=== PATIENT | male | born 1990 | race Caucasian/White ===

== ENCOUNTER 2018-02-01 12:54 | Inpatient (IN) | payer OTHER ==
[2018-02-01 14:55] VITALS: BMI 20.9
--- NOTE | 2018-02-01 15:29 | HP ---
CIWA Score - CIWA Score Nausea/Vomitin Muscle Tremors: 3 Anxiety: 3 Agitation: 2 Paroxysmal Sweats: 2 Orientation: 0-Oriented Tacttile Disturbances: 0-None Auditory Disturbances: 0-None Visual Disturbances: 0-None Headache: 0-None Present CIWA-Ar Total Score: 12 Admission ROS S - [facility] Chief Complaint: " I was sent here by drug court, My life is getting out of control for the past month, I started using, I want to get clean and get back to my program" Allergies/Adverse Reactions: Allergies Allergy/AdvReac Type Severity Reaction Status Date / Time No Known Allergies Allergy Verified 02/01/18 16:36 History of Present Illness: 27 yo male with hx of alcohol, xanax, IV heroin dependence. Reports is linked to [facility] out patient program for buprenorphine maintenance therapy. Reports has been on buprenorphine for a year and for the past month has relapsed to using xanax, and heroin, reports buprenorphine script a week ago and needs to schedule follow up visit, he last took the buprinorphine 8mg this past 01/29/18 and has one more dose left. Denies hx of seizures, reports hx of blackouts and OD. Denies suicidal / homicidal ideation. PMHX: chrons disease , depression and anxiety. Last detox 1.5 years in [facility]. Longest period f sobriety 2 years. Others' Prescriptions Patient Name: Dariusz Robledo Date: 1990 Address: [address] [place] [address] Sex: Male Rx Written Rx Dispensed Drug Quantity Days Supply Prescriber Name 12/23/2017 12/24/2017 dextroamp-amphetamin 10 mg tab 56 28 Tia hill DO 12/23/2017 12/24/2017 buprenorphine 8 mg tablet sl 56 28 Tia hill DO 11/24/2017 11/26/2017 buprenorphine 8 mg tablet sl 56 28 DamonTia hill DO 11/24/2017 11/26/2017 dextroamp-amphetamin 10 mg tab 56 28 HeTia hill DO 10/28/2017 10/31/2017 buprenorphine 8 mg tablet sl 56 28 Tia Bridges DO 10/28/2017 10/31/2017 dextroamp-amphetamin 10 mg tab 56 28 Heemstra, Tia L DO 09/30/2017 10/07/2017 dextroamp-amphetamin 10 mg tab 42 28 Tia Bridges DO 09/30/2017 10/02/2017 buprenorphine 8 mg tablet sl 56 28 HeTamanna hille Anjel DO 09/16/2017 09/18/2017 buprenorphine 8 mg tablet sl 28 14 Tia Bridges DO 09/16/2017 09/18/2017 dextroamp-amphetamin 10 mg tab 21 14 Tia Bridges DO 09/10/2017 09/11/2017 buprenorphine 8 mg tablet sl 10 5 HeTamanna hille Anjel DO 09/10/2017 09/11/2017 dextroamp-amphetamin 10 mg tab 8 5 Tia Bridges DO 06/16/2017 06/29/2017 buprenorphine 8 mg tablet sl 8 4 HeTia hill DO 06/07/2017 06/11/2017 buprenorphine 8 mg tablet sl 16 8 Stef Lindsay DO Patient Name: Dariusz Robledo Date: 1990 Address: [address] [place] [address] Sex: Male Rx Written Rx Dispensed Drug Quantity Days Supply Prescriber Name 08/26/2017 08/28/2017 buprenorphine 8 mg tablet sl 28 14 Tia Bridges DO 08/26/2017 08/28/2017 dextroamp-amphetamin 10 mg tab 21 14 HeTamanna hille Anjel DO 07/28/2017 08/11/2017 buprenorphine 8 mg tablet sl 28 14 Tamanna Bridgese Anjel DO 08/11/2017 08/11/2017 dextroamp-amphetamin 10 mg tab 21 14 HeLuda hillerie L DO 07/28/2017 07/28/2017 dextroamp-amphetamin 10 mg tab 14 14 Luda Bridgeserie L DO 07/22/2017 07/22/2017 buprenorphine 8 mg tablet sl 28 14 Luda Bridgeserie Anjel DO 06/30/2017 07/05/2017 buprenorphine 8 mg tablet sl 28 14 JaimiemelisaLudaTia Anjel DO 05/21/2017 05/26/2017 zolpidem tartrate 10 mg tablet 30 30 Stef Lindsay DO 05/26/2017 05/26/2017 buprenorphine 8 mg tablet sl 16 8 Stef Lindsay I DO 05/25/2017 05/25/2017 buprenorphine 8 mg tablet sl 2 1 Stef Lindsay I DO 05/21/2017 05/24/2017 buprenorphine 8 mg tablet sl 60 30 Stef Lindsay I DO 04/17/2017 04/18/2017 buprenorphine 8 mg tablet sl 60 30 Ratki, Nettie D O 04/11/2017 04/11/2017 zolpidem tartrate 10 mg tablet 15 15 Natalee Torres MD 03/17/2017 03/19/2017 buprenorphine 8 mg tablet sl 60 30 Ratki, Nettie D O 02/17/2017 02/18/2017 buprenorphine 8 mg tablet sl 60 30 Ratki, Nettie D O 01/30/2017 02/03/2017 buprenorphine 8 mg tablet sl 30 30 Ratki, Nettie D O Exam Limitations: No Limitations - Ebola screening Have you traveled outside of the country in the last 21 days: No (N) Have you had contact with anyone from an Ebola affected area: No Have you been sick,other than usual withdrawal symptoms: No Do you have a fever: No - Review of Systems Constitutional: Chills, Diaphoresis, Loss of Appetite, Unintentional Wgt. Loss ( 15 lbs in the past month) EENT: reports: Nose Congestion Respiratory: reports: No Symptoms reported Cardiac: reports: No Symptoms Reported GI: reports: See HPI, Nausea, Poor Appetite, Poor Fluid Intake : reports: No Symptoms Reported Musculoskeletal: reports: No Symptoms Reported Integumentary: reports: Other (track seth left fore arm) Neuro: reports: See HPI Endocrine: reports: Increased Thirst Hematology: reports: No Symptoms Reported Psychiatric: reports: Orientated x3, Depressed Other Systems: Reviewed and Negative Patient History - Patient Medical History Hx Anemia: No Hx Asthma: No Hx Chronic Obstructive Pulmonary Disease (COPD): No Hx Cancer: No Hx Cardiac Disorders: No Hx Congestive Heart Failure: No Hx Hypertension: No Hx Hypercholesterolemia: No Hx Pacemaker: No HX Cerebrovascular Accident: No Hx Seizures: No Hx Dementia: No Hx Diabetes: No Hx Gastrointestinal Disorders: No Hx Liver Disease: No Hx Genitourinary Disorders: No Hx Sexually Transmitted Disorders: No Hx Renal Disease (ESRD): No Hx Thyroid Disease: No Hx Human Immunodeficiency Virus (HIV): No (Last tested 6 months ago, declines testing ) Hx Hepatitis C: Yes (treated ) Hx Depression: Yes Hx Suicide Attempt: No Hx Bipolar Disorder: No Hx Schizophrenia: No - Patient Surgical History Past Surgical History: No - PPD History Documented Results: Negative w/proof Date: 10/13/13 PPD to be Administered?: Yes - Reproductive History Patient is a Female of Child Bearing Age (11 -55 yrs old): No - Smoking Cessation Smoking history: Current every day smoker Have you smoked in the past 12 months: Yes Aproximately how many cigarettes per day: 10 Cigars Per Day: 0 Hx Chewing Tobacco Use: No Initiated information on smoking cessation: Yes 'Breaking Loose' booklet given: 02/01/18 - Substance & Tx. History Hx Alcohol Use: Yes Hx Substance Use: Yes Substance Use Type: Alcohol, Heroin, Opiates Hx Substance Use Treatment: Yes (1.5 years ago at [facility] ) - Substances Abused Alcohol Route: Oral Frequency: 1-2 times per week Amount used: 2 - 3 beers Age of first use: 12 (substitutes for xanax) Date of Last Use: 02/01/18 Alprazolam (Xanax) Route: Oral Frequency: 3-6 times per week Amount used: 4 - 6 mg Age of first use: 27 Date of Last Use: 02/01/18 Heroin Route: Injection Frequency: Daily Amount used: 1 bundle Age of first use: 20 Date of Last Use: 02/01/18 Family Disease History - Family Disease History Family Disease History: Other: Father (ALCOHOL ) Admission Physical Exam BHS - Vital Signs Vital Signs: Vital Signs - 24 hr 02/01/18 14:51 Temperature 97.3 F L Pulse Rate 66 Respiratory 20 Rate Blood Pressure 100/65 - Physical General Appearance: Yes: Appropriately Dressed, Mild Distress, Anxious HEENTM: Yes: EOMI, Hearing grossly Normal, Normal ENT Inspection, Normocephalic , Normal Voice, PANCHO, Pharynx Normal, Tm's normal Respiratory: Yes: Chest Non-Tender, Lungs Clear, Normal Breath Sounds, No Respiratory Distress, No Accessory Muscle Use Neck: Yes: Within Normal Limits Breast: Yes: Breast Exam Deferred Cardiology: Yes: Regular Rhythm, Regular Rate Abdominal: Yes: Within Normal Limits Genitourinary: Yes: Within Normal Limits Back: Yes: Within Normal Limits Musculoskeletal: Yes: full range of Motion, Gait Steady, Pelvis Stable Extremities: Yes: Within Normal Limits Neurological: Yes: furniture sprayer II-XII NML intact, Fully Oriented, Alert, Motor Strength 5/5, Depressed Affect Integumentary: Yes: Normal Color, Warm, Moist Lymphatic: Yes: Within Normal Limits - Diagnostic (1) Moderate opioid dependence on maintenance therapy Current Visit: Yes Status: Acute Comment: on Suboxone 8mg QD (2) Anxiety and depression Current Visit: Yes Status: Acute (3) Nicotine dependence Current Visit: Yes Status: Acute Qualifiers: Nicotine product type: cigarettes (4) Sedative, hypnotic or anxiolytic dependence with withdrawal, unspecified Current Visit: Yes Status: Acute (5) Alcohol dependence Current Visit: Yes Status: Acute (6) Weight decreased Current Visit: Yes Status: Acute Cleared for Admission [facility] - Detox or Rehab [facility] Level of Care: Medically Managed Detox Regimen/Protocol: Valium [facility] Breath Alcohol Content Breath Alcohol Content: 0 Urine Drug Screen - Results Drug Screen Negative: No Urine Drug Screen Results: OPI-Opiates, BZO-Benzodiazepines
[2018-02-01] MEDS ORDERED: MAGNESIUM CITRATE 300 ML BOTTLE PO PRN (16:48)
[2018-02-01] MEDS ORDERED: P-EPHED 60MG/TRIPROLIDI 2.5MG TABLET PO PRN (16:48)
[2018-02-01] MEDS ORDERED: IBUPROFEN 400 MG TABLET (FP) PO PRN (16:48)
[2018-02-01] MEDS ORDERED: LOPERAMIDE HCL 2 MG CAPSULE PO PRN (16:48)
[2018-02-01] MEDS ORDERED: ACETAMINOPHEN 325 MG TABLET (FP) PO PRN (16:48)
[2018-02-01] MEDS ORDERED: MENTHOL/PHENOL 1 EACH UD MM PRN (16:48)
[2018-02-01] MEDS ORDERED: guaiFENesin/D-METHORPHAN HB 10 ML UNIT-DOSE CUPS PO PRN (16:48)
[2018-02-01] MEDS ORDERED: NICOTINE POLACRILEX 2 MG GUM BC PRN (16:48)
[2018-02-01] MEDS ORDERED: MAG HYDROX/AL HYDROX/SIMETH 30 ML UNIT-DOSE CUP PO PRN (16:48)
[2018-02-01] MEDS ORDERED: MAGNESIUM HYDROX 2400MG/30ML ORAL SUSPENSION 30 ML CUP PO PRN (16:48)
[2018-02-01] MEDS ORDERED: hydrOXYzine PAMOATE 50 MG CAPSULE (FP) PO PRN (16:48)
[2018-02-01] MEDS ORDERED: diazePAM 5 MG TABLET PO ONE (18:30)
--- NOTE | 2018-02-01 20:09 | PN ---
S Progress Note Note: Call received from pharmacy Subutex not available. Patient to start on suboxone 02/02/18 in the AM. Discussed with patient and patient in agreement.
[2018-02-01] MEDS ORDERED: BUPRENORPHINE HCL 8 MG TAB.SUBL SL SCH (22:00)
[2018-02-01] MEDS ORDERED: MELATONIN 5 MG TABLETS PO PRN (22:00)
[2018-02-01] MEDS ORDERED: THIAMINE HCL 100 MG TABLET (FP) PO SCH (22:00)
[2018-02-01] MEDS: diazePAM 5 MG TABLET PO SCH (22:04)
[2018-02-01 23:56] LABS: URINE APPEARANCE CLEAR; URINE BILIRUBIN NEGATIVE (<2.0 mg/dL); URINE BLOOD 2+ (NEGATIVE); URINE COLOR YELLOW; URINE GLUCOSE (UA) NEGATIVE (NEGATIVE); URINE KETONE NEGATIVE (NEGATIVE); URINE LEUK ESTERASE NEGATIVE (NEGATIVE); URINE NITRITE NEGATIVE (NEGATIVE); URINE PROTEIN NEGATIVE (NEGATIVE); URINE UROBILINOGEN 4.0 E.U/dl mg/dL (0.2-1.0)
[2018-02-02 00:04] LABS: EPI CELLS RARE /HPF (FEW); URINE HYALINE CAST 3 /lpf; URINE MUCUS MANY
[2018-02-02] MEDS: diazePAM 5 MG TABLET PO SCH ×2 (06:44→14:56)
[2018-02-02] MEDS: diazePAM 5 MG TABLET PO PRN ×2 (08:59→13:09)
--- NOTE | 2018-02-02 09:26 | PN ---
[facility] CIWA - CIWA Score Nausea/Vomitin Muscle Tremors: 3 Anxiety: 3 Agitation: 3 Paroxysmal Sweats: 3 Orientation: 0-Oriented Tacttile Disturbances: 0-None Auditory Disturbances: 0-None Visual Disturbances: 0-None Headache: 0-None Present CIWA-Ar Total Score: 15 BHS Progress Note (SOAP) Subjective: Diarrhea Sweats Sleep disturbance shakes Objective: 02/02/18 09:23 In bed A & O X 3 Appears comfortable Vital Signs Temperature 96.8 F L 02/02/18 06:32 Pulse Rate 76 02/02/18 06:32 Respiratory Rate 16 02/02/18 06:32 Blood Pressure 85/57 02/02/18 06:32 O2 Sat by Pulse Oximetry (%) Laboratory Last Values Urine Color Yellow 02/02/18 00:00 Urine Appearance Clear 02/02/18 00:00 Urine pH 7.0 (5.0-8.0) 02/02/18 00:00 Ur Specific [place] 1.021 (1.001-1.035) 02/02/18 00:00 Urine Protein Negative (NEGATIVE) 02/02/18 00:00 Urine Glucose (UA) Negative (NEGATIVE) 02/02/18 00:00 Urine Ketones Negative (NEGATIVE) 02/02/18 00:00 Urine Blood 2+ (NEGATIVE) H 02/02/18 00:00 Urine Nitrite Negative (NEGATIVE) 02/02/18 00:00 Urine Bilirubin Negative (<2.0 mg/dL) 02/02/18 00:00 Urine Urobilinogen 4.0 e.u/dl mg/dL (0.2-1.0) 02/02/18 00:00 Ur Leukocyte Esterase Negative (NEGATIVE) 02/02/18 00:00 Urine WBC (Auto) <1 /hpf (3-5) 02/02/18 00:00 Urine RBC (Auto) 26 /hpf (0-3) 02/02/18 00:00 Ur Epithelial Cells Rare /HPF (FEW) 02/02/18 00:00 Hyaline Casts 3 /lpf 02/02/18 00:00 Urine Mucus Many 02/02/18 00:00 lab results pending Abnormal urinalysis Assessment: 02/02/18 09:26 withdrawal sx abnormal urinalysis Plan: Continue detox Increase water hydration
[2018-02-02] MEDS ORDERED: PRENATAL VITAMINS W/ FOLIC ACID TABLET (FP) PO SCH (10:00)
[2018-02-02] MEDS ORDERED: NICOTINE 14 MG/24 HOURS TOPICAL PATCH TD SCH (10:00)
[2018-02-02] MEDS ORDERED: BUPRENORPHINE/NALOXONE 8 MG/2 MG FILM PACKET SL SCH (10:00)
[2018-02-02 10:31] LABS: HEMATOCRIT 41.5 % (35.4-49); HEMOGLOBIN 14.1 GM/dL (11.7-16.9); MCH 28.6 pg (25.7-33.7); MCHC 33.9 g/dl (32.0-35.9); MEAN CELL VOLUME 84.3 fl (80-96); PLATELET COUNT 136 K/MM3 (134-434); RBC 4.93 M/mm3 (4.00-5.60); RDW 13.4 % (11.9-15.9); WHITE BLOOD COUNT 5.2 K/mm3 (4.0-10.0)
[2018-02-02 10:39] LABS: ALBUMIN 3.5 g/dl (3.4-5.0); CHLORIDE 101 mmol/L (98-107); POTASSIUM 4.2 mmol/L (3.5-5.1); SODIUM 138 mmol/L (136-145)
[2018-02-02 10:42] LABS: ALK PHOS 81 U/L (45-117); ANION GAP 5 (8-16); BILIRUBIN,TOTAL 0.7 mg/dL (0.2-1.0); BLOOD UREA NITROGEN 13 mg/dL (7-18); CALCIUM 8.4 mg/dL (8.5-10.1); CO2 32 mmol/L (21-32); CREATININE 0.9 mg/dL (0.7-1.3); GLUCOSE,RANDOM 92 mg/dL (74-106); SGOT/AST 13 U/L (15-37); SGPT/ALT 24 U/L (12-78); TOT PROT 7.3 g/dl (6.4-8.2)
--- NOTE | 2018-02-02 10:50 | PN ---
S Progress Note Note: Tigan 200mg IM ordered for pt's vomiting. Pt remains A & O x 3, states he "feels sick", no vomiting at this time
--- NOTE | 2018-02-02 11:26 | EKG ---
Test Reason : Blood Pressure : / mmHG Vent. Rate : 068 BPM Atrial Rate : 068 BPM P-R Int : 134 ms QRS Dur : 094 ms QT Int : 378 ms P-R-T Axes : 050 069 052 degrees QTc Int : 401 ms NORMAL SINUS RHYTHM NORMAL ECG NO PREVIOUS ECGS AVAILABLE Confirmed by DAVID ALLAN MD ([id number]) on 02/02/2018 11:26:19 AM Referred By: Confirmed By:DAVID ALLAN MD
[2018-02-02] MEDS ORDERED: TRIMETHOBENZAMIDE HCL 200MG/2ML INJ IM ONE (11:45)
[2018-02-02 13:06] VITALS: BP 97/66; PULSE 69; TEMP 97.4
--- NOTE | 2018-02-02 18:02 | CONSULT ---
[facility] Psychiatric Consult - Data Date of interview: 02/02/18 Admission source: [facility] Identifying data: Vocational Rehabilitation Teacher went to patient's room to proceed with a psychiatric evaluation.Mr Robledo is NOT found on the unit.Nursing staff reports that this patient had decided to leave the program earlier and left without seeing the psychiatrist.See staff's notes for details.
[2018-02-03] MEDS ORDERED: diazePAM 5 MG TABLET PO SCH (10:00)
[2018-02-05] MEDS ORDERED: diazePAM 5 MG TABLET PO SCH (10:00)
== END 2018-02-02 15:26 | disposition left against medical advice (07) | DRG 770 ==
LOC: YASAS 12:54 → Y3N 18:18
PROVIDERS: ADMIT Surgery; ATTEND Surgery
PROC: HZ2ZZZZ Detoxification Services for Substance Abuse Treatment (ICD-10-PCS; principal; 2018-02-01)
DX: F11.20 Opioid dependence, uncomplicated (principal); F13.230 Sedative, hypnotic or anxiolytic dependence with withdrawal, uncomplicated; F10.230 Alcohol dependence with withdrawal, uncomplicated; F17.210 Nicotine dependence, cigarettes, uncomplicated; F41.8 Other specified anxiety disorders; F32.9 Major depressive disorder, single episode, unspecified; R63.4 Abnormal weight loss; Z68.20 Body mass index [BMI] 20.0-20.9, adult
CPT/HCPCS: 36415; 80053; 81003; 81015; 85027; 86593; 93005; 93010

== ENCOUNTER 2019-03-08 22:29 | Inpatient (IN) | payer OTHER ==
[2019-03-08 23:00] VITALS: BMI 19.8
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
[2019-03-09] MEDS ORDERED: NICOTINE POLACRILEX 2 MG GUM BUC PRN (03:22)
[2019-03-09] MEDS ORDERED: METHADONE HCL 10 MG TABLET (FOR DETOX USE ONLY) PO ONE (03:22)
[2019-03-09] MEDS ORDERED: P-EPHED 60MG/TRIPROLIDI 2.5MG TABLET PO PRN (03:22)
[2019-03-09] MEDS ORDERED: IBUPROFEN 400 MG TABLET (FP) PO PRN (03:22)
[2019-03-09] MEDS ORDERED: guaiFENesin 200 MG/10 ML 10 ML UNIT-DOSE CUPS PO PRN (03:22)
[2019-03-09] MEDS ORDERED: ACETAMINOPHEN 325 MG TABLET (FP) PO PRN ×2 (03:22)
[2019-03-09] MEDS ORDERED: diazePAM 5 MG TABLET PO ONE (03:22)
[2019-03-09] MEDS ORDERED: MAGNESIUM HYDROX 2400MG/30ML ORAL SUSPENSION 30 ML CUP PO PRN (03:22)
[2019-03-09] MEDS ORDERED: MENTHOL/PHENOL 1 EACH UD MM PRN (03:22)
[2019-03-09] MEDS ORDERED: ONDANSETRON *ODT* 4 MG TABLET SL PRN (03:22)
[2019-03-09] MEDS ORDERED: MELATONIN 5 MG TABLETS PO PRN (03:22)
[2019-03-09] MEDS ORDERED: MAGNESIUM CITRATE 300 ML BOTTLE PO PRN (03:22)
[2019-03-09] MEDS ORDERED: BISMUTH SUBSALICYLATE 524 MG/30 ML UD PO PRN (03:22)
[2019-03-09] MEDS ORDERED: MAG HYDROX/AL HYDROX/SIMETH 30 ML UNIT-DOSE CUP PO PRN (03:22)
[2019-03-09] MEDS ORDERED: DICYCLOMINE HCL 10 MG CAPSULE PO PRN (03:22)
[2019-03-09] MEDS ORDERED: cloNIDine HCL 0.1 MG TABLET PO PRN (03:22)
[2019-03-09] MEDS ORDERED: METHOCARBAMOL 500 MG TABLET PO PRN (03:22)
[2019-03-09] MEDS: diazePAM 5 MG TABLET PO SCH ×3 (05:33→23:00)
[2019-03-09] MEDS: diazePAM 5 MG TABLET PO PRN ×3 (08:00→16:58)
[2019-03-09] MEDS: PRENATAL VITAMINS W/ FOLIC ACID TABLET (FP) PO SCH (10:22)
[2019-03-09] MEDS: NICOTINE 14 MG/24 HOURS TOPICAL PATCH TD SCH (10:22)
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
[2019-03-09 12:10] LABS: HEMATOCRIT 33.6 % (35.4-49); HEMOGLOBIN 11.1 GM/dL (11.7-16.9); MCH 27.2 pg (25.7-33.7); MCHC 33.1 g/dl (32.0-35.9); MEAN CELL VOLUME 82.2 fl (80-96); MEAN PLT VOLUME 8.1 fl (7.5-11.1); PLATELET COUNT 148 K/MM3 (134-434); RBC 4.09 M/mm3 (4.00-5.60); RDW 13.7 % (11.9-15.9)
[2019-03-09 12:35] LABS: ALBUMIN 3.2 g/dl (3.4-5.0); BILIRUBIN,TOTAL 0.4 mg/dL (0.2-1); BLOOD UREA NITROGEN 17.8 mg/dL (7-18); CALCIUM 8.1 mg/dL (8.5-10.1); CREATININE 0.8 mg/dL (0.55-1.3); POTASSIUM 3.6 mmol/L (3.5-5.1); TOT PROT 6.6 g/dl (6.4-8.2)
--- NOTE | 2019-03-09 12:44 | PN ---
[facility] CIWA - CIWA Score Nausea/Vomitin-No Nausea/No Vomiting Muscle Tremors: 3 Anxiety: 4-Mod. Anxious/Guarded Agitation: 3 Paroxysmal Sweats: 1-Minimal Palms Moist Orientation: 1-Uncertain about Date Tacttile Disturbances: 1-Very Mild Itch/Numbness Auditory Disturbances: 0-None Visual Disturbances: 0-None Headache: 1-Very Mild CIWA-Ar Total Score: 14 BHS COWS - Scale Resting Pulse: 0= [place] 80 or Below Sweatin= Chills/Flushing Restless Observation: 0= Sits Still Pupil Size: 0= Normal to Room Light Bone or Joint Aches: 2= Severe Diffuse Aches Runny Nose/ Eye Tearin= Nasal Congestion GI Upset > 30mins: 2= Nausea/Diarrhea Tremor Observation of Outstretched Hands: 2= Slight Tremor Visible Yawning Observation: 1= 1-2x During Session Anxiety or Irritability: 2=Irritable/Anxious Goose Flesh Skin: 3=Piloerection COWS Score: 14 S Progress Note (SOAP) Subjective: anxiety restlessness body aches Objective: 03/09/19 12:43 Vital Signs Temperature 97.7 F 03/09/19 09:13 Pulse Rate 71 03/09/19 09:13 Respiratory Rate 18 03/09/19 09:13 Blood Pressure 94/56 L 03/09/19 09:13 O2 Sat by Pulse Oximetry (%) Laboratory Last Values WBC 4.0 K/mm3 (4.0-10.0) 03/09/19 08:30 RBC 4.09 M/mm3 (4.00-5.60) 03/09/19 08:30 Hgb 11.1 GM/dL (11.7-16.9) L 03/09/19 08:30 Hct 33.6 % (35.4-49) L 03/09/19 08:30 MCV 82.2 fl (80-96) 03/09/19 08:30 MCH 27.2 pg (25.7-33.7) 03/09/19 08:30 MCHC 33.1 g/dl (32.0-35.9) 03/09/19 08:30 RDW 13.7 % (11.9-15.9) 03/09/19 08:30 Plt Count 148 K/MM3 (134-434) 03/09/19 08:30 MPV 8.1 fl (7.5-11.1) 03/09/19 08:30 Sodium 139 mmol/L (136-145) 03/09/19 08:30 Potassium 3.6 mmol/L (3.5-5.1) 03/09/19 08:30 Chloride 102 mmol/L (98-107) 03/09/19 08:30 Carbon Dioxide 32 mmol/L (21-32) 03/09/19 08:30 Anion Gap 5 MMOL/L (8-16) L 03/09/19 08:30 BUN 17.8 mg/dL (7-18) 03/09/19 08:30 Creatinine 0.8 mg/dL (0.55-1.3) 03/09/19 08:30 Est GFR (CKD-EPI)AfAm 139.91 03/09/19 08:30 Est GFR (CKD-EPI)NonAf 120.72 03/09/19 08:30 Random Glucose 97 mg/dL (74-106) 03/09/19 08:30 Calcium 8.1 mg/dL (8.5-10.1) L 03/09/19 08:30 Total Bilirubin 0.4 mg/dL (0.2-1) 03/09/19 08:30 AST 27 U/L (15-37) 03/09/19 08:30 ALT 47 U/L (13-61) 03/09/19 08:30 Alkaline Phosphatase 78 U/L (45-117) 03/09/19 08:30 Total Protein 6.6 g/dl (6.4-8.2) 03/09/19 08:30 Albumin 3.2 g/dl (3.4-5.0) L 03/09/19 08:30 lab noted Assessment: 03/09/19 12:44 benzo and opiate withdrawal sx Plan: continue benzo and opiate detox
[2019-03-09 14:47] LABS: PH,URINE 5.5 (5.0-8.0); URINE APPEARANCE CLOUDY; URINE BILIRUBIN NEGATIVE (NEGATIVE); URINE COLOR DK YELLOW; URINE GLUCOSE (UA) NEGATIVE (NEGATIVE); URINE KETONE TRACE (NEGATIVE); URINE LEUK ESTERASE NEGATIVE (NEGATIVE); URINE NITRITE NEGATIVE (NEGATIVE); URINE PROTEIN TRACE (NEGATIVE)
[2019-03-09] MEDS ORDERED: QUEtiapine FUMARATE 50 MG TABLET PO SCH (22:00)
[2019-03-09] MEDS ORDERED: THIAMINE HCL 100 MG TABLET (FP) PO SCH (22:00)
[2019-03-10] MEDS: diazePAM 5 MG TABLET PO PRN (02:44)
[2019-03-10] MEDS ORDERED: diazePAM 5 MG TABLET PO SCH (06:00)
[2019-03-10] MEDS ORDERED: METHADONE HCL 10 MG TABLET (FOR DETOX USE ONLY) ONE (09:15)
[2019-03-10] MEDS ORDERED: METHADONE HCL 5 MG TABLET (FOR DETOX USE ONLY) ONE (09:15)
[2019-03-10 09:18] VITALS: BP 89/62; PULSE 78; TEMP 96.1
[2019-03-10] MEDS ORDERED: METHADONE (DETOX) 20 MG, METHADONE (DETOX) 5 MG PO ONE (10:00)
--- NOTE | 2019-03-10 10:16 | PN ---
S CIWA - CIWA Score Nausea/Vomitin-Mild Nausea/No Vomiting Muscle Tremors: 2 Anxiety: 3 Agitation: 3 Paroxysmal Sweats: 1-Minimal Palms Moist Orientation: 1-Uncertain about Date Tacttile Disturbances: 1-Very Mild Itch/Numbness Auditory Disturbances: 0-None Visual Disturbances: 0-None Headache: 1-Very Mild CIWA-Ar Total Score: 13 BHS COWS - Scale Resting Pulse: 0= [place] 80 or Below Sweatin= Chills/Flushing Restless Observation: 0= Sits Still Pupil Size: 0= Normal to Room Light Bone or Joint Aches: 2= Severe Diffuse Aches Runny Nose/ Eye Tearin= Nasal Congestion GI Upset > 30mins: 2= Nausea/Diarrhea Tremor Observation of Outstretched Hands: 2= Slight Tremor Visible Yawning Observation: 2= >3x During Session Anxiety or Irritability: 2=Irritable/Anxious Goose Flesh Skin: 0=Smooth Skin COWS Score: 12 S Progress Note (SOAP) Subjective: tremor body aches headaches limited social activities prefers stay in room resting Objective: 03/10/19 10:15 Vital Signs Temperature 96.1 F L 03/10/19 09:17 Pulse Rate 78 03/10/19 09:17 Respiratory Rate 16 03/10/19 09:17 Blood Pressure 89/62 L 03/10/19 09:17 O2 Sat by Pulse Oximetry (%) Laboratory Last Values WBC 4.0 K/mm3 (4.0-10.0) 03/09/19 08:30 RBC 4.09 M/mm3 (4.00-5.60) 03/09/19 08:30 Hgb 11.1 GM/dL (11.7-16.9) L 03/09/19 08:30 Hct 33.6 % (35.4-49) L 03/09/19 08:30 MCV 82.2 fl (80-96) 03/09/19 08:30 MCH 27.2 pg (25.7-33.7) 03/09/19 08:30 MCHC 33.1 g/dl (32.0-35.9) 03/09/19 08:30 RDW 13.7 % (11.9-15.9) 03/09/19 08:30 Plt Count 148 K/MM3 (134-434) 03/09/19 08:30 MPV 8.1 fl (7.5-11.1) 03/09/19 08:30 Sodium 139 mmol/L (136-145) 03/09/19 08:30 Potassium 3.6 mmol/L (3.5-5.1) 03/09/19 08:30 Chloride 102 mmol/L (98-107) 03/09/19 08:30 Carbon Dioxide 32 mmol/L (21-32) 03/09/19 08:30 Anion Gap 5 MMOL/L (8-16) L 03/09/19 08:30 BUN 17.8 mg/dL (7-18) 03/09/19 08:30 Creatinine 0.8 mg/dL (0.55-1.3) 03/09/19 08:30 Est GFR (CKD-EPI)AfAm 139.91 03/09/19 08:30 Est GFR (CKD-EPI)NonAf 120.72 03/09/19 08:30 Random Glucose 97 mg/dL (74-106) 03/09/19 08:30 Calcium 8.1 mg/dL (8.5-10.1) L 03/09/19 08:30 Total Bilirubin 0.4 mg/dL (0.2-1) 03/09/19 08:30 AST 27 U/L (15-37) 03/09/19 08:30 ALT 47 U/L (13-61) 03/09/19 08:30 Alkaline Phosphatase 78 U/L (45-117) 03/09/19 08:30 Total Protein 6.6 g/dl (6.4-8.2) 03/09/19 08:30 Albumin 3.2 g/dl (3.4-5.0) L 03/09/19 08:30 Urine Color Dk yellow 03/09/19 11:40 Urine Appearance Cloudy 03/09/19 11:40 Urine pH 5.5 (5.0-8.0) D 03/09/19 11:40 Ur Specific [place] 1.030 (1.010-1.035) 03/09/19 11:40 Urine Protein Trace (NEGATIVE) 03/09/19 11:40 Urine Glucose (UA) Negative (NEGATIVE) 03/09/19 11:40 Urine Ketones Trace (NEGATIVE) H 03/09/19 11:40 Urine Blood Negative (NEGATIVE) 03/09/19 11:40 Urine Nitrite Negative (NEGATIVE) 03/09/19 11:40 Urine Bilirubin Negative (NEGATIVE) 03/09/19 11:40 Urine Urobilinogen 1.0 mg/dL (0.2-1.0) 03/09/19 11:40 Ur Leukocyte Esterase Negative (NEGATIVE) 03/09/19 11:40 RPR Titer Nonreactive (NONREACTIVE) 03/09/19 08:30 lab noted Assessment: 03/10/19 10:15 benzo and opiate withdrawal sx Plan: continue benzo and opiate detox
[2019-03-10] MEDS: PRENATAL VITAMINS W/ FOLIC ACID TABLET (FP) PO SCH (10:22)
[2019-03-10] MEDS: NICOTINE 14 MG/24 HOURS TOPICAL PATCH TD SCH (10:22)
[2019-03-11] MEDS ORDERED: diazePAM 5 MG TABLET PO ONE (06:00)
[2019-03-11] MEDS ORDERED: METHADONE HCL 10 MG TABLET (FOR DETOX USE ONLY) PO ONE (10:00)
[2019-03-12] MEDS ORDERED: METHADONE (DETOX) 10 MG, METHADONE (DETOX) 5 MG PO ONE (10:00)
[2019-03-13] MEDS ORDERED: METHADONE HCL 10 MG TABLET (FOR DETOX USE ONLY) PO ONE (10:00)
[2019-03-14] MEDS ORDERED: METHADONE HCL 5 MG TABLET (FOR DETOX USE ONLY) PO ONE (06:00)
== END 2019-03-10 12:55 | disposition left against medical advice (07) | DRG 770 ==
LOC: YASAS 22:29 → Y3N 03-09 03:07
PROVIDERS: ADMIT Surgery; ATTEND Surgery
PROC: HZ2ZZZZ Detoxification Services for Substance Abuse Treatment (ICD-10-PCS; principal; 2019-03-09)
DX: F11.23 Opioid dependence with withdrawal (principal); F13.230 Sedative, hypnotic or anxiolytic dependence with withdrawal, uncomplicated; F17.210 Nicotine dependence, cigarettes, uncomplicated; F19.282 Other psychoactive substance dependence with psychoactive substance-induced sleep disorder; F41.8 Other specified anxiety disorders; F32.9 Major depressive disorder, single episode, unspecified; F43.10 Post-traumatic stress disorder, unspecified; F90.9 Attention-deficit hyperactivity disorder, unspecified type; K50.919 Crohn's disease, unspecified, with unspecified complications; Z86.19 Personal history of other infectious and parasitic diseases; Z87.828 Personal history of other (healed) physical injury and trauma
CPT/HCPCS: 36415; 80053; 81003; 85027; 86593; Q0162